=== PATIENT | female | born 1990 | race Two or more races ===

== ENCOUNTER 2017-08-16 21:47 | Emergency (ER) | payer OTHER ==
[2017-08-16 21:51] VITALS: TEMP 98.4
[2017-08-16] MEDS ORDERED: NS 1,000 ML IV ONE (22:15)
[2017-08-16] MEDS ORDERED: HYDROmorphONE/DILAUDID 1 MG/ML INJ IVP ONE ×2 (22:15→23:14)
[2017-08-16 22:24] VITALS: O2SAT 98
[2017-08-16 22:27] LABS: PLATELET COUNT 319 10^3/uL (150-400)
--- NOTE | 2017-08-16 23:14 | EDPHY ---
H & P Stated Complaint: right side abd pain with N/V since yesterday Time Seen by Provider: 08/16/17 22:03 HPI/ROS: CHIEF COMPLAINT: RIGHT-SIDED ABDOMINAL PAIN History of present illness: This is a 27-year-old female who presents to the emergency department for evaluation of right-sided abdominal pain. She reports the onset of symptoms over the last day. They are primarily in the right, lower aspect of the abdomen. She has had associated nausea and vomiting. She denies precipitating factors. She denies alleviating factors. She denies other associated signs or symptoms including no fevers, no urinary symptoms, no vaginal symptoms, no diarrhea or constipation. Review of systems: A 10 point review of systems was obtained and other than described above was negative - Personal History LMP (Females 10-55): 15-21 Days Ago Current Tetanus/Diphtheria Vaccine: Yes Current Tetanus Diphtheria and Acellular Pertussis (TDAP): Yes - Medical/Surgical History Hx Asthma: No Hx Chronic Respiratory Disease: No Hx Diabetes: No Hx Cardiac Disease: No Hx Renal Disease: No Hx Cirrhosis: No Hx Alcoholism: No Hx HIV/AIDS: No Hx Splenectomy or Spleen Trauma: No Other PMH: PCOS, cholecystectomy, tonsillectomy - Social History Smoking Status: Never smoked - Physical Exam Exam: General Appearance: Alert, nontoxic. Eyes: Pupils equal and round no pallor or injection. ENT, Mouth: Mucous membranes moist. Respiratory: There are no retractions, lungs are clear to auscultation. Cardiovascular: Regular rate and rhythm. Gastrointestinal: Bowel sounds normal. Abdomen is soft, nondistended. Patient is tender to palpation primarily in the right lower quadrant and anterior surface of the right side of the pelvis. This includes over McBurney' s point. No peritoneal signs. Neurological: Alert and oriented x4. Strength and sensation intact and symmetrical. Skin: Warm and dry, no rashes. Musculoskeletal: Neck is supple non tender. Extremities are symmetrical, full range of motion. Psychiatric: Patient is oriented X 3, there is no agitation. Constitutional: Initial Vital Signs Temperature (C) 36.9 C 08/16/17 21:48 Heart Rate 86 08/16/17 21:48 Respiratory Rate 16 08/16/17 21:48 Blood Pressure 126/90 H 08/16/17 21:48 O2 Sat (%) 99 08/16/17 21:48 O2 Delivery Mode Room Air Allergies/Adverse Reactions: No Allergies Allergy (Verified 08/16/17 21:51) Home Medications: Medication Instructions Recorded Citalopram 06/04/14 Nuvaring 03/14/16 Medical Decision Making - Diagnostics Imaging: Discussed imaging studies w/ call center team leader Radiologist ED Course/Re-evaluation: Patient seen under the supervision of my secondary supervising physician Dr. Chino Esquivel. Patient presents to the emergency department for abdominal pain. She is nontoxic. Blood studies largely unremarkable. Urinalysis with nonspecific findings. Ultrasound is unremarkable of the pelvis and appendix although appendix was not identified. CT scan was obtained and does show some mesenteric adenitis. Patient has improved in the emergency room. I do believe she is appropriate for discharge home. Home care is discussed. She is to follow up with her primary care doctor for recheck. Return precautions are given. Patient voiced understanding and agreement with plan. Differential Diagnosis: Included but not limited to gastritis, gastroenteritis, biliary tract disease, pancreatitis, colitis, appendicitis, ovarian cyst, ovarian torsion, and associated complications - Data Points Laboratory Results: Laboratory Results 08/16/17 22:15 08/16/17 22:15 Microbiology Results: MICROBIOLOGY 08/17/17 00:30 Unspecified Urine Culture - Preliminary Five Or More [place] Types Medications Given: Discontinued Medications Hydrocodone Bitart/Acetaminophen ([place] 5/325mg Prepack#6) 1 btl TAKEHOME EDNOW ONE Stop: 08/17/17 00:59 Last Admin: 08/17/17 01:09 Dose: 1 btl Hydromorphone HCl (Dilaudid) 0.5 mg IVP EDNOW ONE Stop: 08/16/17 22:16 Last Admin: 08/16/17 22:22 Dose: 0.5 mg Hydromorphone HCl (Dilaudid) 0.5 mg IVP EDNOW ONE Stop: 08/16/17 23:15 Last Admin: 08/16/17 23:32 Dose: 0.5 mg Sodium Chloride (Ns) 1,000 mls @ 0 mls/hr IV EDNOW ONE; Wide Open PRN Reason: Protocol Stop: 08/16/17 22:16 Last Admin: 08/16/17 22:21 Dose: 1,000 mls Departure - Departure Disposition: Home, Routine, Self-Care Clinical Impression: Abdominal pain Qualifiers: Abdominal location: right lower quadrant Qualified Code(s): R10.31 - Right lower quadrant pain Nausea & vomiting Qualifiers: Vomiting type: unspecified Vomiting Intractability: non-intractable Qualified Code(s): R11.2 - Nausea with vomiting, unspecified Condition: Good Instructions: Acute Nausea and Vomiting (ED), Acute Abdominal Pain (ED) Additional Instructions: Follow-up with primary care doctor in 1-2 days for recheck You have been prescribed [[place]] for pain. [[place]] contains Tylenol, do not take extra Tylenol/acetaminophen/Apap with it. It is sedating. If symptoms worsen or new symptoms develop return to the emergency room for recheck Referrals: Melani Rogel, PAC [Primary Care Provider] - As per Instructions
[2017-08-16 23:34] VITALS: RESP 16
[2017-08-16 23:35] VITALS: BP 128/82; PULSE 82
[2017-08-16] MEDS ORDERED: IOPAMIDOL (ISOVUE-300) 100 ML BTL ONE (23:57)
[2017-08-17] MEDS ORDERED: HYDROCOD/APAP 5/325 PREPACK#6 BTL TAKEHOME ONE (00:58)
== END 2017-08-17 01:10 | disposition home or self-care (01) ==
PROC: 3E0337Z Introduction of Electrolytic and Water Balance Substance into Peripheral Vein, Percutaneous Approach (ICD-10-PCS; principal; 2017-08-16)
DX: R10.31 Right lower quadrant pain (principal); R11.2 Nausea with vomiting, unspecified; E86.9 Volume depletion, unspecified; Z90.49 Acquired absence of other specified parts of digestive tract
CPT/HCPCS: 96374; J1170; Q9967

== ENCOUNTER 2017-10-02 03:21 | Emergency (ER) | payer OTHER ==
[2017-10-02 03:29] VITALS: TEMP 98.6
[2017-10-02] MEDS ORDERED: FAMOTIDINE 20 MG TAB PO ONE (04:15)
[2017-10-02] MEDS ORDERED: DEXAMETHASONE 4 MG TAB PO ONE (04:16)
--- NOTE | 2017-10-02 04:17 | EDPHY ---
H & P Stated Complaint: itchy, swelling hands, achy joints. Time Seen by Provider: 10/02/17 03:50 HPI/ROS: HPI The patient presents with concern for allergic reaction. She was started today and a new medication for rheumatoid arthritis, sulfa Stelazine. She took the 1st dose at 7:30 p.m. Tonight. Then at about 12 30 she awoke because her hands were itching and burning and appeared somewhat swollen. She also felt nauseated with some abdominal pain. She called the advice nurse and was instructed to come into the emergency department. She has no prior history of anything similar. She is not on any other new medications. She is not using any new soaps or lotions. She did take Benadryl prior to arrival at about 1:30 a.m. With much improvement in her symptoms. REVIEW OF SYSTEMS Constitutional: No fever, no chills. Eyes: No discharge. ENT: No sore throat. Cardiovascular: No chest pain, no palpitations. Respiratory: No cough, no shortness of breath. Gastrointestinal: Positive for abdominal pain, no vomiting. Genitourinary: No hematuria. Musculoskeletal: No back pain. Skin: Positive for rashes. Neurological: No headache. PMHx: Rheumatoid arthritis Soc Hx: Housed PHYSICAL General Appearance: Alert, no distress Eyes: Pupils equal and round no pallor or injection ENT, Mouth: Mucous membranes moist Respiratory: There are no retractions, lungs are clear to auscultation Cardiovascular: Regular rate and rhythm Gastrointestinal: Abdomen is soft and non-tender, no masses, bowel sounds normal Neurological: A&O, moves all extremities Skin: Warm and dry, no rashes Musculoskeletal: Neck is supple non tender Extremities: symmetrical, full range of motion Psychiatric: Patient is oriented X 3, there is no agitation Source: Patient Exam Limitations: No limitations - Personal History Current Tetanus/Diphtheria Vaccine: Yes Current Tetanus Diphtheria and Acellular Pertussis (TDAP): Yes - Medical/Surgical History Hx Asthma: No Hx Chronic Respiratory Disease: No Hx Diabetes: No Hx Cardiac Disease: No Hx Renal Disease: No Hx Cirrhosis: No Hx Alcoholism: No Hx HIV/AIDS: No Hx Splenectomy or Spleen Trauma: No Other PMH: PCOS, cholecystectomy, tonsillectomy - Social History Smoking Status: Never smoked Constitutional: Initial Vital Signs Temperature (C) 37 C 10/02/17 03:26 Heart Rate 78 02/23/18 03:26 Respiratory Rate 16 10/02/17 03:26 Blood Pressure 120/79 10/02/17 03:26 O2 Sat (%) 97 10/02/17 03:26 O2 Delivery Mode Room Air Allergies/Adverse Reactions: No Allergies Allergy (Verified 08/16/17 21:51) Home Medications: Medication Instructions Recorded Citalopram 06/04/14 Nuvaring 03/14/16 Medical Decision Making Differential Diagnosis: 27-year-old female with rheumatoid arthritis, starting sulfasalazine today presents with itchy hands with swelling bilaterally now improved after taking Benadryl. Also abdominal pain without vomiting. On exam, she is not hypotensive, she does not have any hives, posterior pharynx is normal appearing , she does not have any wheezing on lung exam and hands do not appear swollen. I feel she is suffering an allergic reaction from her new medication, however I do not appreciate any signs of anaphylaxis. She will get a dose of Pepcid and Decadron here and be discharged home with instructions to continue taking Benadryl and she is feeling better. - Data Points Medications Given: Discontinued Medications Dexamethasone (Decadron) 10 mg PO EDNOW ONE Stop: 10/02/17 04:17 Last Admin: 10/02/17 04:20 Dose: 10 mg Famotidine (Pepcid) 20 mg PO EDNOW ONE Stop: 10/02/17 04:16 Last Admin: 10/02/17 04:20 Dose: 20 mg Departure - Departure Disposition: Home, Routine, Self-Care Clinical Impression: Allergic reaction Condition: Good Instructions: Allergies (ED) Additional Instructions: Please avoid taking any sulfasalazine. You should follow up with your regular doctor in 1-2 days. Please return to the emergency department if your worse in any way. I recommend you take Benadryl 25 mg every 6 hr until your better. Referrals: Melani Rogel, PAC [Primary Care Provider] - As per Instructions
[2017-10-02 04:30] VITALS: BP 118/80; PULSE 74; RESP 18; O2SAT 98
== END 2017-10-02 04:36 | disposition home or self-care (01) ==
DX: L29.9 Pruritus, unspecified (principal); T43.3X5A Adverse effect of phenothiazine antipsychotics and neuroleptics, initial encounter

== ENCOUNTER → 2018-01-01 | Outpatient (CLI) | payer OTHER | LOC: FIMAGING 14:57 | PROVIDERS: ATTEND Physician Assistant Medical | DX: R92.8 Other abnormal and inconclusive findings on diagnostic imaging of breast (principal) ==